=== PATIENT | male | born 1940 | race Caucasian/White ===

== ENCOUNTER 2016-09-07 09:28 | Day surgery (SDC) | payer MEDICARE, OTHER ==
[2016-09-06 14:19] LABS: HEMATOCRIT 40.2 % (42.0-54.0); HEMOGLOBIN 13.3 g/dL (13.5-17.5); MCH 31.2 pg (26.0-34.0); MCHC 33.1 g/dL (31.0-37.0); MCV 94.4 fL (80.0-100.0); MEAN PLATELET VOLUME 9.4 fL (7.4-10.4); RBC 4.26 10x6/uL (4.20-6.10); RDW 12.4 % (11.5-14.5); WBC 5.3 10x3/uL (4.8-10.8)
[2016-09-06 14:26] LABS: ANION GAP 12.1 mmol/L (8-16); CALCIUM 9.5 mg/dL (8.5-10.1); CARBON DIOXIDE 27.3 mmol/L (21.0-32.0); CREATININE - SERUM 1.2 mg/dL (0.6-1.3); POTASSIUM - SERUM 4.4 mmol/L (3.5-5.1)
[~2016-09-07] VITALS: Ht 170.2 cm; Wt 81.2 kg
[2016-09-07 08:52] VITALS: BP 141/75; Ht 170.2 cm; Wt 81.2 kg
[~2016-09-07 09:28] MED LIST: GLUCOPHAGE500 MG PO; TRICOR145 MG PO
[2016-09-07] MEDS ORDERED: NORCO 7.5/325 T1 TA1 PO (11:20)
--- NOTE | 2016-09-25 12:19 | OP ---
PATIENT NAME: KATJA REED MEDICAL RECORD: [id number] :36 LOCATION:[facility] ADMISSION DATE: SURGEON: DIAMANTE PATEL MD DATE OF OPERATION: 09/07/2016 PREOPERATIVE DIAGNOSIS: Right index finger ganglion cyst. POSTOPERATIVE DIAGNOSIS: Right index finger ganglion cyst. PROCEDURE PERFORMED: Right index finger cyst excision. SURGEON: Jey Patel MD ANESTHESIA: TIVA with local. SPECIMEN: Sent to pathology. CONDITION: He tolerated the procedure well and was transferred to the recovery room in stable condition at termination of procedure. INDICATIONS: This is a pleasant 75-year-old gentleman that presented with a fairly large cyst on the back of his index finger on the right side. He wanted this removed. We discussed risks, benefits and alternatives. He understood and wished to proceed. OPERATIVE REPORT: The patient was taken to the operating room and placed in supine position. TIVA anesthesia was obtained. The right hand was confirmed to be the correct hand. He did receive antibiotics per protocol. Initially, did a digital block using Marcaine and lidocaine plain. I then proceeded to make a dorsal incision over this, took this down, identified the cyst and it was removed and sent to pathology. I then copiously irrigated, then closed with interrupted 3-0 Prolene sutures, placed in soft dressing. He is awakened and transferred to the recovery room in stable condition. We will see him back in the office in about 2 weeks. He did have a syncopal episode last night and he is going to see his primary before he leaves. TRANSINT:[id number] Voice Confirmation ID: [id number] DOCUMENT ID: [id number] DIAMANTE PATEL MD at 1219 CC: [id number] DICTATION DATE: 09/07/16 1134 [facility]ER: 09/07/16 1339 [facility] 09/07/16 [place] [id number] [place] [id number]
== END 2016-09-07 12:25 | disposition home or self-care (01) ==
LOC: D.OPS 09:28 → D.PAN 10:30 → D.OPS 12:25
PROVIDERS: Anesthesiology
DX: M67.441 Ganglion, right hand (principal)